=== PATIENT | male | born 1980 | race Caucasian/White ===

== ENCOUNTER 2020-07-19 15:29 | Emergency (ER) | payer OTHER ==
[~2020-07-19] VITALS: Ht 182.9 cm; Wt 102.1 kg
[~2020-07-19 15:29] MED LIST: IBUPROFEN800 MG PO
[2020-07-19] MEDS ORDERED: MAGNESIUM400 MG PO (15:55)
[2020-07-19] MEDS ORDERED: NORCO 7.5-3251 EACH PO (18:05)
--- NOTE | 2020-07-21 07:01 | OR ---
[facility] [address] [place], [place] [address] Signed DATE OF OPERATION: 07/19/2020 SURGEON: Emanuel Bazan MD PREOPERATIVE DIAGNOSIS: Displaced distal radius fracture, acute, right. POSTOPERATIVE DIAGNOSIS: Displaced distal radius fracture, acute, right. PROCEDURE PERFORMED: Closed reduction and splinting, right distal radius. DIVISION HEAD: None. ANESTHESIA: , conscious sedation. BRIEF HISTORY: Jaison is a 40-year-old gentleman, who injured his wrist playing basketball this afternoon. He rolled his ankle and fell on his right distal radius and noted extreme deformity and pain. Radiographs showed 100% displaced Colles fracture of the distal radius with lateral translation. The risks and benefits of closed reduction in the consultation in the ER were discussed with him and his , they elected to proceed. Once conscious sedation was established, the distal radius was manipulated. The initial radiograph showed it only to be partially reduced; however, with further manipulation, traction, and ulnar deviation, we were able to get it reduced. Final radiographs showed the fracture to be well reduced with only a mm or so of displacement. The patient was placed in a radial gutter splint with about 25 degrees of flexion. He was awakened from anesthesia and did well. Emanuel Bazan MD BA/ASIML /[id number] Electronically Signed By: EMANUEL BAZAN MD 07/21/20 0701 PATIENT NAME: JAISON IYER OPERATIVE REPORT DATE OF : 80 REPORT #: [id number] PHYSICIAN: EMANUEL BAZAN MD PCP: TRISHA DAVIDSON MD REPORT IS CONFIDENTIAL AND NOT TO BE RELEASED WITHOUT AUTHORIZATION [facility] [address] [place], [place] [address] Signed Copies: ~ Electronically Signed By: EMANUEL BAZAN MD 07/21/20 0701 PATIENT NAME: JAISON IYER OPERATIVE REPORT DATE OF : 80 REPORT #: [id number] PHYSICIAN: EMANUEL BAZAN MD PCP: TRISHA DAVIDSON MD REPORT IS CONFIDENTIAL AND NOT TO BE RELEASED WITHOUT AUTHORIZATION
== END 2020-07-19 19:05 | disposition home or self-care (01) ==
LOC: ED 15:29
DX: S52.501A Unspecified fracture of the lower end of right radius, initial encounter for closed fracture (principal); S52.611A Displaced fracture of right ulna styloid process, initial encounter for closed fracture; W01.198A Fall on same level from slipping, tripping and stumbling with subsequent striking against other object, initial encounter; Z79.899 Other long term (current) drug therapy
CPT/HCPCS: 25520; 73110; 73610; 99156; 99283-25; A9270; J1170; J2704

== ENCOUNTER 2020-07-23 05:45 | Day surgery (SDC) | payer OTHER ==
[~2020-07-23] VITALS: Ht 182.9 cm; Wt 102.0 kg
[~2020-07-23 05:45] MED LIST changes: +MAGNESIUM400 MG PO; +NORCO 7.5-3251 EACH PO
[2020-07-23] MEDS ORDERED: DICLOFENAC SODI75 MG PO (08:34)
--- NOTE | 2020-07-23 08:36 | NUR ---
07/23/20 0836 Juliet Cee 0827- PT TO PACU IN SF POSITION. EYES CLOSED. DOES NOT RESPOND TO VERBAL OR TACTILE STIMULI. BREATHING EVEN WITH SNORING, JAW THRUST NEEDED TO ALLOW EASY AND EVEN RESPIRATION. SPO2 >95% ON 6 L O2 VIA SIMPLE MASK. CAP REFIL BRISK TO RUE. 0835- PT CONTINUES TO SLEEP REQUIRING JAW THRUST TO ALLOW EVEN, NONOBSTRUCTIVE AIRFLOW. SPO2 >95% ON 6 L O2 VIA SIMPLE MASK. BREATHING EVEN AND UNLABORED WITH AIRWAY SUPPORT. ICE APPLIED TO RUE.
[2020-07-23] MEDS ORDERED: XARELTO10 MG PO (09:35)
[2020-07-23] MEDS ORDERED: ASPIRIN EC325 MG PO (09:35)
[2020-07-23] MEDS ORDERED: TRAMADOL HCL50 MG PO (09:35)
--- NOTE | 2020-07-23 09:44 | NUR ---
PATIENT IS BACK TO DAY SURGERY FROM PACU. HE IS AWAKE AND ORIENTED. TOLERATING SIPS OF WATER. CALL LIGHT WITHIN REACH. NO ADDITIONAL NEEDS AT THIS TIME. PATIENT WAS ABLE TO AMBULATE HIMSELF TO RESTROOM AND BACK TO BED.
--- NOTE | 2020-07-23 10:04 | NUR ---
PT ALERT, ORIENTED AND SEEMS SOMEWHAT ANXIOUS. OR STAFF WAITING, HAD JUST A BRIEF MOMENT-GAVE ENCOURAGEMENT, SUPPORT AND BLESSING. WILL FOLLOW NEEDED
--- NOTE | 2020-07-23 10:29 | NUR ---
PT IS DOING WELL AND MEETING ALL DC CRITERIA. HE INIDCATES THAT HE WOULD LIKE TO GO HOME. HE IS EDUCATED ON HOW TO BEST DRESS HIMSELF AND TO OPEN HIS CURTAIN WHEN READY.
--- NOTE | 2020-07-23 10:40 | OR ---
[facility] [address] [place], [place] [address] Signed DATE OF OPERATION: 07/23/2020 SURGEON: Emanuel Bazan MD PREOPERATIVE DIAGNOSIS: Displaced distal radius fracture, right. POSTOPERATIVE DIAGNOSIS: Displaced distal radius fracture, right. PROCEDURE PERFORMED: Open reduction and internal fixation of right distal radius. NETWORK TECHNICAL ANALYST: Keturah Garcia PA-C. Keturah was present and critical for all portions of procedure. ANESTHESIA: General. BLOOD LOSS: Minimal. TOURNIQUET TIME: 52 minutes. IMPLANTS: Synthes variable angle distal radius plate with 8 screws. BRIEF HISTORY: Jaison is a 40-year-old gentleman who was playing basketball when he came down, rolled his ankle and fell on his right distal radius. He was seen in the ER where radiographs showed 100% displacement of the distal radius. I came in and reduced the fracture in the ER and we scheduled surgery for this week to allow the swelling to go down. The risks, benefits, and alternatives were discussed with him and he elected to proceed. DESCRIPTION OF PROCEDURE: Once consent was obtained, he was taken to the operating room. After adequate anesthesia, he was placed on the operating table, all downside pressure points were well padded. A well-padded proximal arm tourniquet was placed. The arm was prepped and Electronically Signed By: EMANUEL BAZAN MD 07/23/20 1040 PATIENT NAME: JAISON IYER OPERATIVE REPORT DATE OF : [birth year] REPORT #: [id number] PHYSICIAN: EMANUEL BAZAN MD PCP: TRISHA DAVIDSON MD REPORT IS CONFIDENTIAL AND NOT TO BE RELEASED WITHOUT AUTHORIZATION [facility] [address] [place], [place] [address] Signed draped in a standard sterile fashion. The arm was exsanguinated using Esmarch bandage and tourniquet inflated to 200 mmHg. The volar approach along the FCR was taken through the skin and subcutaneous tissue. The floor of the FCR sheath was then incised and the pronator was evaluated. The pronator was torn over its distal half and completely disrupted. It was fairly well shredded. The remainder of the pronator was released from its radial insertion and the fracture was cleared of debris. It was rotated. It was immediately noted that there were two intra-articular splits, one in between the scaphoid and lunate facets, the other through radial styloid. These were reduced and pinned and the entire distal radial portion was reduced and pinned to the proximal shaft. Once this was satisfactorily completed, the plate was fashioned to fit the volar surface and centered. It was held with the central shaft screw and then adjusted under image intensifier. Holding reductions particularly the articular surface reductions. The two middle distal screws were filled using locking screws. The remaining three were then drilled and appropriate length screws were placed. These were checked carefully using image intensifier. One screw was found to be too long was removed and changed to 4 mm shorter screw. The two screws in the radial shaft proximally were then drilled and appropriate length screws were placed. Final radiographs showed good reduction and excellent apposition and alignment of the articular surface. The wound was copiously irrigated with antibiotic solution. We closed the pronator as best we could given the significant trauma previously. The floor of the FCR sheath was closed with 3-0 Monocryl and the subcutaneous tissue with 3-0 Monocryl. The skin was closed with 3-0 Prolene and Steri-Strips. Wound was dressed with Acticoat and sterile gauze. He was placed in a radial gutter splint, taken to recovery room in satisfactory condition. All sponge, needle, and instrument counts were correct. Emanuel Bazan MD BA/MODL /[id number] Copies: ~ Electronically Signed By: EMANUEL BAZAN MD 07/23/20 1040 PATIENT NAME: JAISON IYER OPERATIVE REPORT DATE OF : 80 REPORT #: [id number] PHYSICIAN: EMANUEL BAZAN MD PCP: TRISHA DAVIDSON MD REPORT IS CONFIDENTIAL AND NOT TO BE RELEASED WITHOUT AUTHORIZATION
--- NOTE | 2020-07-23 10:49 | NUR ---
PT IS GIVEN VERBAL DC INSTRUCTIONS WITH SON PRESENT. PT VERBALIZES UNDERSTANDING. QUESTIONS ARE ASKED AND ANSWERED. PT IS WALKED OUT TO THE VEHICLE.
== END 2020-07-23 10:45 | disposition home or self-care (01) ==
LOC: DS 05:45 → OPS 05:45 → DS 06:45 → OPS 10:45
PROVIDERS: ATTEND Specialist
PROC: 0PSH04Z Reposition Right Radius with Internal Fixation Device, Open Approach (ICD-10-PCS; principal; 2020-07-23 06:45)
DX: S52.531A Colles' fracture of right radius, initial encounter for closed fracture (principal); G89.18 Other acute postprocedural pain; Z91.040 Latex allergy status; Z91.018 Allergy to other foods; Z88.5 Allergy status to narcotic agent; W01.0XXA Fall on same level from slipping, tripping and stumbling without subsequent striking against object, initial encounter; Y93.67 Activity, basketball
CPT/HCPCS: 01830; 64417; 73100; 76942; C1713; J0690; J1100; J1885; J2250; J2405; J2704; J2795; J7121

== ENCOUNTER 2020-12-09 09:20 | Emergency (ER) | payer OTHER ==
[~2020-12-09] VITALS: Ht 182.9 cm; Wt 101.6 kg
[~2020-12-09 09:20] MED LIST changes: +ASPIRIN EC325 MG PO; +DICLOFENAC SODI75 MG PO; +TRAMADOL HCL50 MG PO; +XARELTO10 MG PO
--- NOTE | 2020-12-09 12:03 | EKG ---
[facility] [address] [facility] [place], [place] [address] Signed Normal sinus rhythm with sinus arrhythmia Normal ECG No previous ECGs available Confirmed by KEN GAYLE MD ([id number]) on 12/09/2020 12:03:31 PM Electronically Signed By: KEN GAYLE MD 12/09/20 1203 PATIENT NAME: JUSTA IYER Electrocardiogram DATE OF : 80 PHYSICIAN: KEN GAYLE MD REPORT #: [id number] REPORT IS CONFIDENTIAL AND NOT TO BE RELEASED WITHOUT AUTHORIZATION
== END 2020-12-09 12:10 | disposition home or self-care (01) ==
LOC: ED 09:20
DX: R00.2 Palpitations (principal); Z88.5 Allergy status to narcotic agent; Z91.018 Allergy to other foods
CPT/HCPCS: 71045; 80053; 83735; 84443; 84484; 85025; 93005; 93010; 99285-25

== ENCOUNTER 2022-04-15 05:50 | Day surgery (SDC) | payer OTHER ==
[~2022-04-15] VITALS: Ht 182.9 cm; Wt 104.5 kg
--- NOTE | ~2022-04-15 | OR ---
[facility] [address] [place], [place] [address] Draft DATE OF OPERATION: 04/15/2022 SURGEON: Shai Wagner MD PREOPERATIVE DIAGNOSES: 1. Deviated nasal septum. 2. Turbinate hypertrophy. 3. Nasal valve collapse. 4. Nasal obstruction. 5. Obstructive sleep apnea. POSTOPERATIVE DIAGNOSES: 1. Deviated nasal septum. 2. Turbinate hypertrophy. 3. Nasal valve collapse. 4. Nasal obstruction. 5. Obstructive sleep apnea. PROCEDURES: 1. Nasal septoplasty, [address]. 2. Left submucous resection of inferior turbinates. 3. Incidental cartilage grafting into right external nasal valve (no charge). INDICATIONS: This 42-year-old gentleman, who has had lifelong history of nasal obstruction. He does not remember very well trauma to the nose, but he has been diagnosed with obstructive sleep apnea in later years and requires a CPAP machine he can use it unless his nose was decongested. He has not been able to do that because of progressive nasal obstruction. Examination showed a deviated nasal septum with spur on the right and very narrow airway. The left airway was his main airway, but the turbinate was very large. Nasal steroid sprays have proved ineffective. Surgery is felt to be of essentially a cure, hence the procedure was indicated. DESCRIPTION OF PROCEDURE: The patient was placed in a supine position, had an orotracheal intubation, was placed under general anesthesia. The septum was injected with 3 mL of 1% lidocaine with 1:100,000 epinephrine and 2 mL of 0.5% Marcaine with epinephrine. The patient had evidence of old trauma. Also, he had a very pinched tip especially the external bowel on the right side, which was asymmetric more than the left. A flap was developed with two tunnels, one superior and one inferior on either side of the spur. The flap PATIENT NAME: JUSTA IYER OPERATIVE REPORT DATE OF : 80 REPORT #: [id number] PHYSICIAN: SHAI WAGNER MD PCP: CECILLE GARCIA MD REPORT IS CONFIDENTIAL AND NOT TO BE RELEASED WITHOUT AUTHORIZATION [facility] [address] [place], [place] [address] Draft was developed without a fenestra into the flap, then linking up these two tunnels over the spur. The bone was from cartilage with the Yuma D knife and septal button knife and then the blunt end of the caudal dissection tool. Delvalle scissors were used to cut the thin bone, which was sticking into the airway superior to the spur. Ilya forceps removed more of this until the middle turbinate could be visualized. Inferiorly, chisel and mallet were used to remove the deviation of the septum and the spur entirely, which then allowed the septal flaps to be 4-0 gut, the anterior incision closed with same. Once the septum was straightened, the patient now had obstruction on the left side from a very large turbinates. The turbinates were injected with a couple of mL of Marcaine and a stab incision made anteriorly dissecting the mucoperiosteum with the Vic tool above the turbinate bone, which was then fractured little pieces and taken out of the envelope. A curette was used to fracture every little bit of the turbinate as much as possible, they were removed from the airway, that incision was not closed. Making a stab incision with a little dissection with the Armstrong scissors, a piece of thin cartilage which had a very small paper thin piece of perpendicular plate bone on it was inserted, so that it was superficial to the piriform aperture to help bolster that external bowel. It was closed with a single stitch of 4-0 gut. No packing required. The patient went to the recovery room in good condition. He received 5000 units of subcu heparin preop because of family history of DVTs. Shai Wagner MD [facility]/MODL /[id number] Copies: ~ PATIENT NAME: JUSTA IYER OPERATIVE REPORT DATE OF : 80 REPORT #: [id number] PHYSICIAN: SHAI WAGNER MD PCP: CECILLE GARCIA MD REPORT IS CONFIDENTIAL AND NOT TO BE RELEASED WITHOUT AUTHORIZATION
--- NOTE | 2022-04-15 09:47 | NUR ---
04/15/22 0947 Juanis Plascencia 0933- PT ARRIVES TO PACU NONAROUSABLE TO STIMULI WITH AN OPA IN PLACE. PT ALSO NEEDING A JAW LIFT/ THRUST TO MAINTAIN A PATENT AIRWAY. RESP EVEN AND UNLABORED. OXYGEN SAT HIGH 90'S TO 100% ON 6L VIA MASK. PT'S HEAD OF BED ELEVATED. 0942- PT STARTING TO AROUSE AND PUSHES THE OPA OUT SLIGHTLY. PT IS NOT FOLLOWING COMMANDS AND IS NOT GAGGING ON THE OPA. OPA LEFT IN PLACE. RESP EVEN AND UNLABORED. OXYGEN SAT HIGH 90'S TO 100% ON 6L VIA MASK. 0943- PT RESPONDING TO VOICE. PT ABLE TO FOLLOW COMMANDS TO OPEN HIS MOUTH AND REMOVE THE OPA. OXYGEN MASK REPLACED AT 6L. PT TRYING TO REACH UP TO HIS FACE. PT BEING UPDATED THAT HIS SURGERY IS OVER AND TO NOT TOUCH HIS FACE. PT ABLE FOLLOW COMMANDS AND REST HIS ARMS DOWN. 0946- OXYGEN TITRATED OFF.
--- NOTE | 2022-04-15 10:14 | NUR ---
PATIENT BACK TO ROOM 6 FROM PACU ON . RECEIVED REPORT FROM PAMELA BAEZ. PATIENT IS DROWSY LAYING IN BED. RATES PAIN 1/10, STATES THROAT IS SORE. DENIES NAUSEA. DRESSING IS CLEAN, DRY, AND INTACT. PATIENT TAKING SIPS OF WATER. AT BEDSIDE. CALL LIGHT WITHIN REACH.
--- NOTE | 2022-04-15 10:59 | NUR ---
1045-PATIENT UP TO SIDE OF BED. DENIES NAUSEA OR DIZZINESS. PATIENT AMBULATES TO RESTROOM. 1050-PATIENT AMBULATES BACK TO ROOM. DRESSING HAS MODERATE AMOUNT OF RED DRAINAGE AND THIS IS CHNAGED. 1055-PATIENT TAKING SIPS OF WATER AND EATING CRACKERS.
--- NOTE | 2022-04-15 11:43 | NUR ---
1105-PATIENT LAYING IN BED AWAKE. RESP EVEN AND UNLABORED. RATES PAIN 2/10. DENIES NAUSEA. DRESSING HAS A MODERATED AMOUNT OF DRAINAGE. DRESSING CHANGED. AT BEDSIDE. CALL LIGHT WITHIN REACH. PATIENT READY TO GO HOME AND WILL GET DRESSED.
--- NOTE | 2022-04-15 11:45 | NUR ---
1115-DISCHARGE INSTRUCTIONS GIVEN TO PATIENT AND . ALL QUESTIONS ANSWRED. PATIENT HAS MODERATE AMOUNT OF DRAINAGE ON DRESSING. WILL CONTINUE TO WATCH A LITTLE BIT LONGER BEFORE PATIENT GOES HOME. 1135-PATIENT DRESSING DIDNT NOT CHANGE MUCH IN THE LAST 20 MIN. DRESSING CHANGED. SMALL CLOT NOTED ON GAUZE. PATIENT WILL CONTINUE TO OBSERVE DRAINAGE AT HOME. WHEELCHAIR RIDE PROVIDED TO FRONT OF HOSPITAL WHERE WAS WAITING WITH THE CAR.
--- NOTE | 2022-04-15 16:09 | NUR ---
PT ALERT, ORIENTED AND SUPPORTED BY HIS YESICA. PT SEEMS INFORMED ALL QUESTIONS ASKED ANSWERED. PT REQUESTED PRAYER, YESICA WILL REMAIN FOR DC. WILL FOLLOW NEEDED
== END 2022-04-15 11:30 | disposition home or self-care (01) ==
LOC: DS 05:50
PROVIDERS: ATTEND Otolaryngology
PROC: 099M7ZZ Drainage of Nasal Septum, Via Natural or Artificial Opening (ICD-10-PCS; principal; 2022-04-15 07:30)
DX: J34.2 Deviated nasal septum (principal); J34.3 Hypertrophy of nasal turbinates; G47.33 Obstructive sleep apnea (adult) (pediatric); J34.89 Other specified disorders of nose and nasal sinuses
CPT/HCPCS: J0131; J0330; J1100; J1644; J2250; J2405; J2704; J7121